=== PATIENT | female | born 1955 | race Caucasian/White ===

== ENCOUNTER 2019-08-30 11:03 | Outpatient (CLI) | payer BC, OTHER ==
--- NOTE | 2019-09-01 15:54 | XRAY Report ---
Reason: HX OF NONTRAMITIC CELLULITIS R. FOOT, 4TH DIGIT Procedure Date: 08/30/2019 Accession Number: [id number] / [id number] Procedure: XRS - Foot 3 View RT CPT Code: FULL RESULT: EXAM: RIGHT FOOT RADIOGRAPHY EXAM DATE: 08/30/2019 11:12 AM. CLINICAL HISTORY: History of nontraumatic cellulitis right foot, 4th digit. COMPARISON: None. TECHNIQUE: 3 views. FINDINGS: Bones: Normal. No fractures or bone lesions. Small plantar and dorsal calcaneal spurs. Joints: Degenerative joint disease in the first MTP joint and sesamoids. Mild midfoot degenerative joint disease. No erosions. Soft Tissues: Mild forefoot soft tissue swelling. IMPRESSION: 1. Mild degenerative joint disease. Mild soft tissue swelling. 2. No evidence of fracture or bony destruction. RADIA
== END 2019-08-30 11:04 | disposition home or self-care (01) ==
LOC: DI.S 11:03
PROVIDERS: ATTEND Family Medicine
DX: M19.071 Primary osteoarthritis, right ankle and foot (principal)

== ENCOUNTER 2020-02-20 18:20 | Outpatient (CLI) | payer OTHER | END 2020-02-20 18:21 | disposition home or self-care (01) | LOC: COV 18:20 | PROVIDERS: ATTEND Family Medicine | DX: R05 Cough (principal); R50.9 Fever, unspecified | CPT/HCPCS: 81599 ==

== ENCOUNTER 2020-06-04 13:26 | Outpatient (CLI) | payer OTHER ==
--- NOTE | 2020-06-04 13:51 | XRAY Report ---
PROCEDURE: Foot 3 View LT INDICATIONS: LEFT FOOT TECHNIQUE: 3 views of the foot were acquired. COMPARISON: None FINDINGS: Bones: No fractures or dislocations. No suspicious bony lesions. A plain film a foreign body in th is area is not seen. Incidental note is made of mild to moderate osteoarthritis at the first MTP join t and also plantar fascial and Achilles tendon insertion spurring at the posterior calcaneus. Soft tissues: No tibiotalar joint effusion. Achilles tendon appears normal. IMPRESSION: No fracture or foreign body seen. Achilles tendon and plantar fascia insertion spurring incidentally noted. Mild osteoarthritis at the first MTP joint. Reviewed by: Jean Pierre Oakes MD on 06/04/2020 1:49 PM PDT Approved by: Jean Pierre Oakes MD on 06/04/2020 1:49 PM PDT Station ID: [id number]
== END 2020-06-04 13:27 | disposition home or self-care (01) ==
LOC: DI.S 13:26
PROVIDERS: ATTEND Naturopath
DX: M19.072 Primary osteoarthritis, left ankle and foot (principal)

== ENCOUNTER 2020-09-03 14:17 | Observation (INO) | payer OTHER ==
[2020-09-03] MEDS ORDERED: NITROGLYCERIN SL 0.4 MG TABLET SL STA (14:55)
--- NOTE | 2020-09-03 14:58 | ED Physician Documentation ---
PD HPI CHEST PAIN - Stated complaint Stated Complaint: CP/ARM PAIN - Chief complaint Chief Complaint: Cardiac - History obtained from History obtained from: Patient - History of Present Illness Timing - onset: How many hours ago (24) Timing - duration: Hours (24) Timing - details: Abrupt onset, Constant Quality: Pressure, Throbbing Location: Left chest Radiation: Left upper extremity Improved by: Nothing Worsened by: Inspiration Associated symptoms: No: Shortness of air, Diaphoresis, Nausea, Vomiting, Feeling faint / dizzy Similar symptoms before: Has not had sx before - Additional information Additional information: 64-year-old female presents to the emergency department for evaluation of left upper chest pain that 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 She describes it as constant and throbbing. Worse when she lays on her left side or when she presses on the muscles of her left chest and worse with a deep breath. She denies any dyspnea or syncope. She does have a history of high blood pressure for which she takes losartan. She has had no vomiting diaphoresis cough or fevers. no hx of cancer, no hx of DVT. no unilateral leg swelling or recent immobilization She denies any history of coronary artery disease. She reports having a stress test completed about 10 years ago through [employer] that was unremarkable. She is not a smoker. Patient took 381 mg aspirins prior to arrival. Review of Systems Constitutional: denies: Fever, Chills Eyes: reports: Reviewed and negative Ears: reports: Reviewed and negative Nose: reports: Reviewed and negative Throat: reports: Reviewed and negative Cardiac: reports: Chest pain / pressure. denies: Palpitations, Pedal edema, Calf pain Respiratory: denies: Dyspnea, Cough, Wheezing GI: denies: Nausea : reports: Reviewed and negative Skin: reports: Reviewed and negative Musculoskeletal: reports: Reviewed and negative Neurologic: reports: Reviewed and negative PD PAST MEDICAL HISTORY - Allergies Allergies/Adverse Reactions: Allergies Allergy/AdvReac Type Severity Reaction Status Date / Time Sulfa (Sulfonamide Allergy Unknown Verified 09/03/20 14:40 Antibiotics) PD ED PE EXPANDED - General General: Alert, No acute distress - Neck Neck: Supple w/out meningeal sx, No tenderness. No: Soft tissue TTP, Bony TTP, Limited ROM - Cardiac Cardiac: Regular Rate, Regular Rhythm, Radial strong equal, Pedal strong equal, Cap refill < 2 sec - Respiratory Respiratory: Clear to ausultation mary. No: Distress, Labored - Abdomen Abdomen: Normal Bowel sounds. No: Tender to palpation - Extremities Extremities: Normal - Neuro Neuro: Alert and Oriented X 3. No: Confused, Disoriented - GCS Eye Opening: Spontaneous Motor: Obeys Commands Verbal: Oriented Total: 15 Results - Vitals Vitals: Vital Signs - 24 hr 09/03/20 09/03/20 09/03/20 14:25 15:28 15:38 Temperature 36.8 C Heart Rate 109 H 104 H 96 Respiratory 20 10 L 16 Rate Blood Pressure 215/117 H 171/98 H 145/91 H O2 Saturation 98 98 97 09/03/20 09/03/20 09/03/20 15:42 16:27 17:00 Temperature Heart Rate 109 H 78 82 Respiratory 11 L 16 16 Rate Blood Pressure 123/77 132/71 H 145/84 H O2 Saturation 93 97 99 09/03/20 17:25 Temperature Heart Rate 86 Respiratory 14 Rate Blood Pressure 141/86 H O2 Saturation 98 Oxygen O2 Source Room air - EKG (time done) 1434 Rate: Rate (enter#) (101), Tachy Rhythm: NSR [place]: Anterior hemiblock Intervals: Normal WV QRS: Normal Ischemia: Non specific changes (V5V6 flattening) Compare to prior EKG: Old EKG unavailable (Sinus tach with LAFB; non specific t wave changes V5V6) 1614 Rate: Rate (enter#) (63) Rhythm: NSR [place]: Anterior hemiblock Intervals: Normal WV QRS: Normal Ischemia: Normal ST segments Compare to prior EKG: Changed from prior EKG (HR slowed to NSR with LAFB) Computer interpretation: Agree with computer - Labs Labs: Laboratory Tests 09/03/20 09/03/20 09/03/20 15:00 15:00 15:00 WBC 11.1 H RBC 4.76 Hgb 13.6 Hct 41.1 MCV 86.3 MCH 28.6 MCHC 33.1 RDW 12.9 Plt Count 323 MPV 9.3 Neut # (Auto) 7.9 H Lymph # (Auto) 2.2 Republic # (Auto) 0.7 Eos # (Auto) 0.2 Baso # (Auto) 0.1 Absolute Nucleated RBC 0.00 Nucleated RBC % 0.0 Sodium 137 Potassium 3.9 Chloride 101 Carbon Dioxide 26 Anion Gap 10.0 BUN 16 Creatinine 0.6 Estimated GFR (MDRD) 101 Glucose 107 H Lactic Acid Calcium 9.7 Total Bilirubin 0.4 AST 20 ALT 27 Alkaline Phosphatase 92 Troponin I High Sens 5.2 Total Protein 8.3 H Albumin 4.8 Globulin 3.5 Albumin/Globulin Ratio 1.4 Lipase 27 09/03/20 09/03/20 09/03/20 16:11 16:11 16:11 WBC RBC Hgb 12.2 Hct 37.2 MCV MCH MCHC RDW Plt Count MPV Neut # (Auto) Lymph # (Auto) Republic # (Auto) Eos # (Auto) Baso # (Auto) Absolute Nucleated RBC Nucleated RBC % Sodium Potassium Chloride Carbon Dioxide Anion Gap BUN Creatinine Estimated GFR (MDRD) Glucose Lactic Acid 1.0 Calcium Total Bilirubin AST ALT Alkaline Phosphatase Troponin I High Sens 5.4 Total Protein Albumin Globulin Albumin/Globulin Ratio Lipase - Rads (name of study) CXR Radiology: Final report received (No acute cardiopulmonary process) CT pulmonary angio Radiology: Final report received (Multiple filling defects involving segmental and subsegmental pulmonary arteries in the right lung consistent with pulmonary embolism. Enlargement of the pulmonary arteries with slight leftward deviation of the interventricular septum suggestive of developing right heart strain. ) PD MEDICAL DECISION MAKING - ED course Complexity details: reviewed results, re-evaluated patient, considered differential, d/w patient ED course: 64-year-old female presents to the emergency department for evaluation of sudden onset non-exertional left-sided chest pain that began about 24 hours ago. work up included routine labs, troponin, cxr and ECG. 1608: I have been notified by nursing staff that patient has suddenly become bradycardic and hypotensive. (50's HR, BP 70's/ 50; Patient reports feeling nauseated, clammy and like she is about to have diarrhea) She has a CT angios of the chest pending. Repeat troponin H&H lactic acid is pending. 2 liters of crystalloid ordered 1730: CT scan of the pulmonary arteries shows multiple segmental and sub- segmental right-sided pulmonary embolus with some associated right heart strain. She does have a PESI score of 93. CT scan also suggest some anterior mediastinal lymphadenopathy worrisome for likely metastatic disease. I discussed these findings with admitting hospitalist Dr. Nunez. She is agreed to bring the patient in for further evaluation and treatment of the pulmonary embolus. She has initiated a heparin infusion. Findings were discussed at length with the patient and her partner at the bedside Departure - Departure Clinical Impression: Pulmonary embolus Qualifiers: Pulmonary embolism type: other Chronicity: acute Acute cor pulmonale presence: with acute cor pulmonale Qualified Code(s): I26.09 - Other pulmonary embolism with acute cor pulmonale
[2020-09-03 15:14] LABS: BASOPHILS # (AUTO) 0.1 10^3/uL (0.0-0.1); BASOPHILS % (AUTO) 0.5 %; EOSINOPHILS # (AUTO) 0.2 10^3/uL (0.0-0.7); EOSINOPHILS % (AUTO) 1.4 %; HGB - HEMOGLOBIN 13.6 g/dL (12.0-16.0); LYMPHOCYTES # (AUTO) 2.2 10^3/uL (1.5-3.5); LYMPHOCYTES % (AUTO) 20.2 %; MEAN CORPUSCULAR HEMOGLOBIN 28.6 pg (27.0-31.0); MEAN CORPUSCULAR HGB CONC 33.1 g/dL (32.0-36.0); MEAN CORPUSCULAR VOLUME 86.3 fL (81.0-99.0); MEAN PLATELET VOLUME 9.3 fL (7.9-10.8); MONOCYTES # (AUTO) 0.7 10^3/uL (0.0-1.0); MONOCYTES % (AUTO) 6.1 %; NEUTROPHILS # (AUTO) 7.9 10^3/uL (1.5-6.6); NEUTROPHILS % (AUTO) 71.3 %; PLT - PLATELET COUNT 323 10^3/uL (130-450); RED BLOOD COUNT 4.76 10^6/uL (4.20-5.40); RED CELL DISTRIBUTION WIDTH 12.9 % (12.0-15.0); WHITE BLOOD COUNT 11.1 x10^3/uL (4.8-10.8)
--- NOTE | 2020-09-03 15:18 | XRAY Report ---
PROCEDURE: Chest 1 View X-Ray INDICATIONS: Chest Pain TECHNIQUE: One view of the chest was acquired. COMPARISON: None FINDINGS: Surgical changes and devices: None. Lungs and pleura: No pleural effusions or pneumothorax. Lungs are clear. Mediastinum: Mediastinal contours appear normal. Heart size is normal. Bones and chest wall: No suspicious bony lesions. Overlying soft tissues appear unremarkable. IMPRESSION: No evidence acute pulmonary process. Reviewed by: Vinod Reaves MD on 09/03/2020 3:17 PM PDT Approved by: Vinod Reaves MD on 09/03/2020 3:17 PM PDT Station ID: [id number]
[2020-09-03 15:29] LABS: ALBUMIN 4.8 g/dL (3.2-5.5); ALBUMIN/GLOBULIN RATIO 1.4 (1.0-2.2); BILIRUBIN,TOTAL 0.4 mg/dL (0.2-1.0); CALCIUM 9.7 mg/dL (8.5-10.3); CREATININE 0.6 mg/dL (0.4-1.0); TOTAL PROTEIN 8.3 g/dL (6.7-8.2)
[2020-09-03] MEDS ORDERED: SODIUM CHLORIDE 0.9% 1,000 ML IV STA ×2 (16:07)
[2020-09-03] MEDS ORDERED: IOVERSOL 320 100 ML VIAL IVP ONE (16:12)
[2020-09-03 16:17] LABS: HGB - HEMOGLOBIN 12.2 g/dL (12.0-16.0)
--- NOTE | 2020-09-03 17:24 | CT Report ---
PROCEDURE: ANGIO CHEST W/WO INDICATIONS: pleuritic chest pain; r/o PE CONTRAST: IV CONTRAST: Optiray 320 ml: 80 PO CONTRAST: *NO PO CONTRAST TECHNIQUE: After the administration of intravenous contrast, 2 mm thick sections acquired from the pulmonary api kaylee to the posterior costophrenic angles. 3-dimensional maximum intensity projection (MIP) coronal a nd sagittal reformats were then acquired through the thorax. For radiation dose reduction, the follow ing was used: automated exposure control, adjustment of mA and/or kV according to patient size. COMPARISON: Chest xray 09/03/20. FINDINGS: Image quality: Excellent. Pulmonary arteries: Pulmonary arteries demonstrate nonocclusive segmental and subsegmental filling d efects within the right upper, middle, and lower lobes consistent with pulmonary embolism. There is e nlargement of the pulmonary arteries, with the main pulmonary artery measuring up to 3.1 cm. There is minimal leftward deviation of the interventricular septum suggestive of developing right heart strai n. Lungs and pleura: Mild subpleural scarring and atelectasis are demonstrated within the lung bases. M ild bilateral bronchiectasis is also demonstrated with a basilar predominance. There is a calcified n odule in the right lower lobe consistent with sequelae of old granulomatous disease. No pleural effus ions or pneumothorax. Central and peripheral airways are patent. Mediastinum: Heart size is normal, without pericardial effusion. Thoracic aorta is normal in calibe r and enhancement. There are calcified right hilar lymph nodes consistent with sequelae of old granul omatous disease. The large confluent left anterior mediastinal prevascular lymph nodes are demonstrat ed. Esophagus is normal in caliber, without hiatal hernia. Bones and chest wall: No suspicious bony lesions. Ribs and thoracic spine appear intact throughout. No axillary or supraclavicular adenopathy. There is a small nonspecific left thyroid nodule measuri ng up to 0.7 cm. Abdomen: Visualized upper abdomen demonstrates surgical absence of the gallbladder. IMPRESSION: 1. Multiple filling defects involving segmental and subsegmental pulmonary arteries in the right lung consistent with pulmonary embolism. 2. Enlargement of the pulmonary arteries with slight leftward deviation of the interventricular septu m suggestive of developing right heart strain. 3. Confluent enlarged anterior mediastinal lymph nodes. Findings are nonspecific but suspicious for m etastatic disease. Recommend correlation clinically and follow-up evaluation of the abdomen and pelvi s when clinically feasible. Findings discussed with Monie Sorenson NP on 09/03/2020 at 5:20 PM. Reviewed by: Vinny Mooney MD on 09/03/2020 5:23 PM PDT Approved by: Vinny Mooney MD on 09/03/2020 5:23 PM PDT Station ID: [id number]
[2020-09-03] MEDS: IOVERSOL 320 100 ML VIAL IVP ONE (17:30)
[2020-09-03] MEDS ORDERED: SODIUM CHLORIDE FLUSH 0.9% 10 ML SYRINGE IVP PRN (17:32)
[2020-09-03] MEDS ORDERED: ONDANSETRON ODT 4 MG TABLET TL PRN (17:32)
[2020-09-03] MEDS ORDERED: ONDANSETRON 4 MG/2 ML VIAL IVP PRN (17:32)
[2020-09-03] MEDS ORDERED: oxyCODONE 5 MG TABLET PO PRN (17:32)
--- NOTE | 2020-09-03 17:58 | HISTORY & PHYSICAL EXAMINATION ---
Chief Complaint - Chief Complaint Chief Complaint: pleuritic chest pain History of Present Illness - Admitted From Admitted From:: Home/ER - History Obtained From Records Reviewed: Meditech History obtained from: Patient and meditech Exam Limitations: none - History of Present Illness HPI Comment/Other: This is a lady who regards her self is relatively healthy. Exercises. 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 It is nonradiating. It does not matter whether she is at rest or with exertion. It is constant, and keeps pace with her pulse and throbs. It is pleuritic, made worse by laying on the left side where her chest wall is pressed, or by using her arm too much. She has had no recent travel. She denies a sedentary lifestyle. She exercises by swimming in [facility]. She loves the cold water. The ability to move. She has a bad right knee so she does not like doing cardiovascular exercise there is weightbearing. She has had no unexplained weight changes, fevers, sweats, or change in appetite. She is not short of breath with this, denies neck pain. There is no diaphoresis. She has lived all over the world. She has is from [facility] but has lived in various parts in the [facility], [place], [place], but has been in [facility] for 24 years. She is lived in [place]. The only time she is ever recall being ill was around the time of her daughter's . She had pleuritic chest pain, and it resolved after a few weeks. Her daughter was raising ducklings. So for a while, she visits her daughter every week, she was sleeping in the same room or near the room with the ducklings were sleeping. She has not traveled to [facility]. Her father of a stroke but had blood clots before his . And 1 of her 4 siblings, her oldest brother, has blood clots. Fearing that she was having a cardiac event she took an aspirin and drove to the emergency room. She was evaluated by nurse practitioner Vika Sorenson. Initial blood pressure was quite high at 215/117. Pulse 109. Temperature 36.8. 98% on room air. As her visit progressed her blood pressures come down. By the time the nurse practitioner called me her blood pressure was now down to 105/84. Still saturating well 99% on room air. Her blood work was negative. Troponin negative. Lactic acid negative. Chest x-ray negative. She did become bradycardic and hypotensive for very short brief period of time. This was after she had a CT angiogram of the chest done. She has enlargement of the pulmonary arteries with a slight leftward deviation of the IV septum. Multiple filling defects involving the segmental and subsegmental pulmonary arteries in the right lung. Also of note is old granulomatous lung disease on the CAT scan. Some small lymph nodes with that disease. However she has left-sided mediastinal lymph nodes that are quite large. Differential diagnosis includes metastatic disease. Patient is now admitted to the hospital for IV heparin, transition to anticoagulation. And work-up for possible neoplasm. 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 Prior to his had blood clots. Mom is still alive and has diabetes but healthy. 4 siblings. One has diabetes, one has blood clots. 1 child who is healthy. Living arrangement: At home Living Situation: Alone Social History Notes: She was born in [facility] and is traveled all over. Lived in [place] for a few years, [place], but has been in the [facility] and living on [facility] for 24 years. She is . is in the [place] area and still good friends with him. She has a daughter who lives in [place] and a daughter who lives in [place]. 1 of the daughters is adopted. She never smoked. She rarely drinks alcohol and has not drank in a few months because of K[place]. She says is just not any fun drinking alone. 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 So many of her patients are very unhappy, and she is having to commercial counsel them through their crise s right now. Both of her daughter share equally and being power of employment law attorney for her. - Substance History Use: Uses substance without health or social issues: NONE Abuse: Recurrent use of substance despite neg consequences: NONE Dependence: Experiences withdrawal or developed tolerances: NONE - POLST Patient has POLST: No POLST Status: Full Code Meds/Allgy - Allergies Allergies/Adverse Reactions: Allergies Allergy/AdvReac Type Severity Reaction Status Date / Time Sulfa (Sulfonamide Allergy Unknown Verified 09/03/20 14:40 Antibiotics) Review of Systems - Constitutional Constitutional: denies: Fatigue, Fever, Chills, Malaise, Poor appetite, Diaphoresis - Eyes Eyes: denies: Pain, Amaurosis, Vision loss - Ears, Nose & Throat Ears, Nose & Throat: denies: Hearing loss, Hearing aids, Nasal obstruction, Nasal congestion, Postnasal drainage, Sore throat - Cardiovascular Cariovascular: reports: Chest pain. denies: Irregular heart rate, Palpitations, Edema, Lightheadedness, Syncope, Exertional dyspnea, Decr. exercise tolerance - Respiratory Respiratory: denies: Cough, Sputum production, Wheezing, Orthopnea, SOB at rest, SOB with exertion - Gastrointestinal Gastrointestinal: denies: Abdominal pain, Constipation, Diarrhea, Change in bowel habits - Genitourinary Genitourinary: denies: Dysuria, Frequency, Urgency, Hematuria, Incontinence - Musculoskeletal Musculoskeletal: reports: Muscle pain (The left leg has hurt for years. She has had various physical therapy, and no one's been able to explain why her left leg (especially in the medial thigh) hurts.), Joint pain (In the right knee. Diagnosed with osteoarthritis. Limited motion at times because of pain.). denies: Back pain, Muscle aches, Stiffness - Integumentary Integumentary: denies: Rash, Pruritis, Lesions - Neurological Neurological: denies: General weakness, Focal weakness, Headache, Dizziness, Memory problems, Pre-existing deficit - Psychiatric Psychiatric: denies: Depression, Anxiety, Suicidal, Hallucinations - Endocrine Endocrine: denies: Polyuria, Polydypsia, Polyphagia - Hematologic/Lymphatic Hematologic/Lymphatic: denies: Anemia, Bruising Prior Level of Functionality: Completely independent with activities of daily living. 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 Drives a car. Is able to do her own housework. Pays her own bills. Exam - Vital Signs Reviewed Vital Signs: Yes Vital Signs: Vital Signs x48h Temp Pulse Resp BP Pulse Ox 09/03/20 17:25 86 14 141/86 H 98 09/03/20 17:00 82 16 145/84 H 99 09/03/20 16:27 78 16 132/71 H 97 09/03/20 15:42 109 H 11 L 123/77 93 09/03/20 15:38 96 16 145/91 H 97 09/03/20 15:28 104 H 10 L 171/98 H 98 09/03/20 14:25 36.8 C 109 H 20 215/117 H 98 - Physical Exam General Appearance: positive: No acute distress, Alert, Other (Moderately overweight, anxious, slightly tearful female. This is very, very scary for her. Understandably so. Emotional support being provided by 1 of her best friends who accompanies her. They are both making sure that they are on the phone to answer the anxious questions from anxious daughters.) Eyes Bilateral: positive: PERRL ENT: positive: Pharynx nml Neck: positive: No JVD. negative: Stiff neck Respiratory: positive: Chest non-tender, No respiratory distress, Other (However reproducible left-sided pleuritic chest wall pain is very evident.). negative: Wheezes, Rales, Rhonchi Cardiovascular: positive: Regular rate & rhythm. negative: Systolic murmur, Gallop/S4, Friction rub Peripheral Pulses: positive: 1+ Abdomen: positive: Non-tender, No organomegaly, Nml bowel sounds, No distention, Other (Large abdominal pannus that makes it difficult to do some exam findings for organomegaly) Skin: positive: Warm, Dry Extremities: positive: Non-tender, No pedal edema, Other (Right Knee cap Boggy , no warmth or effusion though) Neurologic/Psychiatric: positive: Oriented x3, CN's nml (2-12), Motor nml, Sensation nml Conclusion/Plan - Problem List (1) Pulmonary embolism Conclusion/Plan: She appears to be developing right heart strain. Shortness of breath. There is no provoking factors. She is not on hormone replacement therapy, she has never had blood clots before with a hypercoagulable disorder, she has not had any prolonged sitting position in a plane or car. However, there is a family history in her father and brother. It is associated, on CAT scan, with possible lymphadenopathy. Indicating possible neoplasm.Which in and of itself would be a risk factor.Her family history is also interesting, indicating possible hypercoagulable disorder. Plan: Observation status Heparin drip with heparin protocol Transition to DOAC in the morning Qualifiers: Pulmonary embolism type: other Chronicity: acute Acute cor pulmonale presence: with acute cor pulmonale Qualified Code(s): I26.09 - Other pulmonary embolism with acute cor pulmonale (2) Mediastinal lymphadenopathy Conclusion/Plan: CT of chest already done for the pulmonary arteries. She does not recall having any granulomatous lung disease in the past. [place] the possibility of fungal lung disease is present. She has been in her room, once a week, for several months with baby ducks. Could she have a mycobacterial infection. Noninfectious causes would be drugs such as methotrexate oretanercept. She is not on those. She is not an IV drug abuser. She does not describe hypersensitivity pneumonitis. No pneumoconiosis. She does not have eosinophilia on CBC. Sarcoidosis is a possibility. Lymphoma can present as granulomatous lung disease or lymphomatoid granulomatosis. Will do CT of abdomen and pelvis in the morning.Unfortunately, she has now been started on anticoagulation. I explained to her that the most urgent treatment at this time is her pulmonary emboli. She will need to see infectious disease and pulmonology and possibly oncology to then start getting the work-up for this mediastinal lymphadenopathy and granulomatous lung disease. That may require going off of anticoagulation for a day for things such as biopsies. (3) Hypertension Conclusion/Plan: On losartan. She usually takes it in the morning. She did take it this morning. High level of anxiety. She says that when they told her the findings on the CT scan her blood pressure went through the roof. She could feel her heart pounding with her fear. Plan: Continue to monitor while here Extra dose of losartan tonight Ativan as needed. . Qualifiers: Hypertension type: essential hypertension Qualified Code(s): I10 - Essentia l (primary) hypertension - Lab Results Lab results reviewed: Yes Fish Bones: 09/03/20 16:11 09/03/20 15:00 - Diagnostic Imaging Results Diagnostic Imaging Results: positive: Final report reviewed Core Measures - Anticipated LOS I expect patient to be DC'd or transferred within 96 hours.: Yes - DVT/VTE - Prophylaxis VTE/DVT Device ordered at admit?: Yes
[2020-09-03] MEDS ORDERED: HEPARIN 25000UNITS/500ML (D5W) 25,000 UNIT/500 ML BAG IV SCH (18:00)
[2020-09-03] MEDS ORDERED: LORazepam 2 MG/ML VIAL IVP PRN (18:54)
[2020-09-03] MEDS: LOSARTAN 50 MG TABLET PO SCH (19:47)
[2020-09-03] MEDS: ACETAMINOPHEN 325 MG TABLET PO PRN (21:29)
[2020-09-04] MEDS ORDERED: SODIUM CHLORIDE FLUSH 0.9% 10 ML SYRINGE IVP SCH (01:00)
[2020-09-04] MEDS: ACETAMINOPHEN 325 MG TABLET PO PRN ×2 (01:02→01:48)
--- NOTE | 2020-09-04 08:10 | Ultrasound Report ---
PROCEDURE: Duplex Ext Veins Bilateral INDICATIONS: Pulmonary emboli, bilateral leg pain. TECHNIQUE: Real-time imaging, as well as color and pulse Doppler interrogation, were performed of the deep veins of both legs from the inguinal ligament to the popliteal fossa. COMPARISON: None FINDINGS: There is chronic-appearing eccentric thrombus within the left popliteal vein. And there is superimposed acute echogenic thrombus within the left popliteal vein as well the peroneal vein, and possible focal thrombus within the posterior tibial vein. This is nonocclusive. There is no evidence of acute thrombus. The bilateral lower extremity deep veins are otherwise normally compressible in fr ee of intraluminal thrombus. Color and pulse Doppler demonstrate normal phasic intravascular flow. There is normal augmentation response to distal compression maneuver. IMPRESSION: Acute on chronic left popliteal vein thrombus with focal thrombus in the peroneal vein and possibly w ithin the posterior tibial vein on the left as well. These are nonocclusive. No significant change fr om the preliminary report. Reviewed by: Alden Bah MD on 09/04/2020 8:08 AM PDT Approved by: Alden Bah MD on 09/04/2020 8:08 AM PDT Station ID: [id number]
[2020-09-04] MEDS ORDERED: IOVERSOL 320 50 ML VIAL ONE (08:11)
[2020-09-04] MEDS ORDERED: IOVERSOL 320 100 ML VIAL IVP ONE (08:11)
[2020-09-04] MEDS: LOSARTAN 50 MG TABLET PO SCH (08:27)
[2020-09-04 09:00] LABS: HGB - HEMOGLOBIN 13.3 g/dL (12.0-16.0); MEAN CORPUSCULAR HEMOGLOBIN 27.8 pg (27.0-31.0); MEAN CORPUSCULAR HGB CONC 32.1 g/dL (32.0-36.0); MEAN CORPUSCULAR VOLUME 86.4 fL (81.0-99.0); MEAN PLATELET VOLUME 9.3 fL (7.9-10.8); RED BLOOD COUNT 4.79 10^6/uL (4.20-5.40); RED CELL DISTRIBUTION WIDTH 13.1 % (12.0-15.0); WHITE BLOOD COUNT 9.7 x10^3/uL (4.8-10.8)
[2020-09-04] MEDS ORDERED: APIXABAN 5 MG TABLET PO SCH (09:00)
[2020-09-04] MEDS: IOVERSOL 320 100 ML VIAL IVP ONE (09:40)
--- NOTE | 2020-09-04 10:45 | CT Report ---
PROCEDURE: Abdomen/Pelvis W INDICATIONS: mediastinal nodes, large CONTRAST: IV CONTRAST: Optiray 320 ml: 100 PO CONTRAST: Optiray 320 ml50 TECHNIQUE: After the administration of IV and oral contrast, 5 mm thick sections acquired from the diaphragms to the symphysis. 5 mm thick coronal and sagittal reformats were acquired. For radiation dose reducti on, the following was used: automated exposure control, adjustment of mA and/or kV according to estelita ent size. COMPARISON: Chest CT dated 09.03.20 FINDINGS: Image quality: Excellent. ABDOMEN: Lung bases: Lung bases are clear. Heart size is normal. Solid organs: Liver and spleen are normal in size and enhancement. Gallbladder is surgically absent Biliary system is non dilated. Pancreas enhances normally. No adrenal nodules. Kidneys demonstra te normal size and enhancement, without hydronephrosis. Peritoneum and bowel: Bowel loops demonstrate normal wall thickness and caliber. No free fluid or a ir. Normal appendix. Nodes and vessels: No retroperitoneal or mesenteric adenopathy by size criteria. Aorta and inferior vena cava are normal in size. Miscellaneous: No ventral hernias. PELVIS: Genitourinary: Bladder wall thickness is normal. Miscellaneous: No inguinal hernias or adenopathy. Bones: No suspicious bony lesions. No vertebral body compression fractures. IMPRESSION: 1. No evidence of adenopathy nor neoplasm within the abdomen, nor pelvis. 2. Normal appendix. Reviewed by: Reece Canada MD on 09/04/2020 10:43 AM PDT Approved by: Reece Canada MD on 09/04/2020 10:43 AM PDT Station ID: [id number]
[2020-09-04 11:20] VITALS: BP 142/91
--- NOTE | 2020-09-04 12:08 | Discharge Plan ---
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 It was changed by respiration, laying on your left side. 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 You are not on control pills or hormones. You do not smoke. In the emergency room we found you to have pulmonary emboli which are clots to the lungs. The source of the clots may be your left leg where an ultrasound shows you to have small clots in the veins below your knee. The CT scan done in the emergency room not only showed blood clots but "granulomatous lung disease" and enlarged lymph glands underneath the area called the mediastinum. That is underneath your breastbone. We did a follow-up CT scan of your abdomen to look for malignancy and that was completely normal. Plan of Treatment: 1. You have been transitioned from intravenous blood thinners to oral/pill blood thinners. That is Eliquis 10 mg twice a day. You will do that until the evening of September 10. Then you will switch to Eliquis 5 mg twice a day for a minimum of the next 3 months. Your primary care provider or specialty referral provider may opt to continue the Eliquis for up to 6 months. 2. To help reduce your risk of recurrence of blood thinners, make sure you stay mildly to moderately physically active every day. It is a simple thing of just taking a walk every day, and not sitting down so much. You can walk back and forth on your heels and toes if you have been sitting for a while, then stand to exercise your legs. Use below the knee compression stockings, low compression. 3. Blood thinners will not only help blood clots to not form, they also will increase risk of bleeding. So make sure you always hold onto railings, use a walking stick, and avoid the risk of falls. 4. While on blood thinners, do not drink more than 1 drink a day of alcohol. You cannot take medication such as aspirin, ibuprofen, Naprosyn. If you have low-grade aches and pains you can take Tylenol. 5. Focus on caloric intake. Reduce the number of calories going in this is that the number of calories out is higher with exercise and diet. This will also reduce your risk of further risk of DVT. 6. Please see your primary care provider in follow-up. Your primary care provider will need to refer you for specialty evaluation of the lymph nodes we are seeing underneath your breastbone. At this time we do not know what the cause of that is. We call it a differential diagnosis. That can consist of infection versus sarcoidosis versus malignancy. Care Goals: To be able to come off blood thinners in the next few months. Completely reduce your risk as much as possible for recurrence of disease. And to find out what the abnormalities are that are seen on CT scan of the chest. To lose weight. Assessment: Patient, and her best friend, have written all of this down. They promised to follow through. No Smoking: If you smoke, Please STOP! Call for help. Follow-up with: Leigh Perdue MD [Primary Care Provider] -
--- NOTE | 2020-09-04 12:19 | DISCHARGE SUMMARY ---
"Discharge Summary Admit Date: 09/03/20 Discharge Date: 09/04/20 Discharging Provider: Shannan Nunez MD Primary Care Provider: Leigh Perdue MD Code Status: Attempt Resuscitation Condition at Discharge: Fair Discharge Disposition: 01 Home, Self Care - DIAGNOSES Discharge Diagnoses with Status of Each Condition: 1. Pulmonary embolism with right heart strain 2. Mediastinal lymphadenopathy 3. Granulomatous lung disease 4. Hypertension 5. Anxiety about health 6. Morbid obesity - HPI History of Present Illness: This is a lady who regards her self is relatively healthy. Exercises. 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 It is nonradiating. It does not matter whether she is at rest or with exertion. It is constant, and keeps pace with her pulse and throbs. It is pleuritic, made worse by laying on the left side where her chest wall is pressed, or by using her arm too much. She has had no recent travel. She denies a sedentary lifestyle. She exercises by swimming in [facility]. She loves the cold water. The ability to move. She has a bad right knee so she does not like doing cardiovascular exercise there is weightbearing. She has had no unexplained weight changes, fevers, sweats, or change in appetite. She is not short of breath with this, denies neck pain. There is no diaphoresis. She has lived all over the world. She has is from [facility] but has lived in various parts in the [facility], [place], [place], but has been in [facility] for 24 years. She is lived in [place]. The only time she is ever recall being ill was around the time of her daughter's . She had pleuritic chest pain, and it resolved after a few weeks. Her daughter was raising ducklings. So for a while, she visits her daughter every week, she was sleeping in the same room or near the room with the ducklings were sleeping. She has not traveled to [facility]. Her father of a stroke but had blood clots before his . And 1 of her 4 siblings, her oldest brother, has blood clots. Fearing that she was having a cardiac event she took an aspirin and drove to the emergency room. She was evaluated by nurse practitioner Vika Sorenson. Initial blood pressure was quite high at 215/117. Pulse 109. Temperature 36.8. 98% on room air. As her visit progressed her blood pressures come down. By the time the nurse practitioner called me her blood pressure was now down to 105/84. Still saturating well 99% on room air. Her blood work was negative. Troponin negative. Lactic acid negative. Chest x-ray negative. She did become bradycardic and hypotensive for very short brief period of time. This was after she had a CT angiogram of the chest done. She has enlargement of the pulmonary arteries with a slight leftward deviation of the IV septum. Multiple filling defects involving the segmental and subsegmental pulmonary arteries in the right lung. Also of note is old granulomatous lung disease on the CAT scan. Some small lymph nodes with that disease. However she has left-sided mediastinal lymph nodes that are quite large. Differential diagnosis includes metastatic disease. Patient is now admitted to the hospital for IV heparin, transition to anticoagulation. And work-up for possible neoplasm. 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 Chest x-ray without evidence of acute cardiopulmonary process 2. Chest/thorax CT angiogram with multiple filling defects involving segmental and subsegmental pulmonary arteries in the right lung consistent with pulmonary embolism. Enlargement of the pulmonary arteries with slight leftward deviation of the interventricular septum suggestive of developing right heart strain. [place] enlarged anterior mediastinal lymph nodes. Nonspecific but suspicious for metastatic disease. Recommend clinical correlation. 3. Duplex extremity veins bilateral. Acute on chronic left popliteal vein thrombus with focal thrombus in the peroneal vein and possibly within the posterior tibial vein on the left as well. They are nonocclusive. 4. Abdomen/pelvis CT with no evidence of adenopathy or neoplasm within the abdomen or pelvis. Normal appendix. - HOSPITAL COURSE Hospital Course: The patient was placed on IV heparin. The next day she was transitioned to Eliquis. Work-up included Dopplers which showed minimal DVT below the knee on the left. It is interesting that she consistently has left-sided chest pain even of the pulmonary embolism are on the right. We did a CT of the abdomen looking for neoplasm that was suggested on the mediastinal findings of the CT of the chest. None was found. During her stay, we noted that she has severe anxiety, justifiably so, when bad news is being presented. That would then cause her systolic blood pressure to go over 200 systolic. We did not adjust her medication because at discharge blood pressure was normal. She required a little bit of Ativan while she was here. I have asked her to follow-up with her primary care provider to see if she needs her medications adjusted. The patient is instructed to continue taking Eliquis 10 mg twice daily until September 10. She can then start Eliquis 5 mg twice daily on September 11. Warned not to take nonsteroidals. Can take Tylenol for pain. See her primary care provider for follow-up and may need referral for work-up of the mediastinal adenopathy.She may need to see oncology as well as pulmonology. At this time differential diagnosis includes infection versus sarcoidosis versus neoplasm. She was given exercises to do to improve mobility of her leg muscles. She was asked to wear compression stockings. Asked to doubt do her classes standing as opposed to sitting. She was also asked to consider negative caloric status to help her lose weight. She was 5 foot 7 inches tall and weighing 108.86 kg. Temperature is 37.1. Pulse is 88. Blood pressure 142/91. Respirations 20. 94 to 96% on room air. Cooperative white female looks slightly older than stated age. Perfectly oval tanned face markings where some of her forehead was pale. Normal speech. Normal vision. Neck was supple without adenopathy. No supraclavicular adenopathy. Lungs were clear to auscultation and percussion. There was no rub. She had no tachypnea or hypoxia. PMI was normally placed. I did not feel an RV lift. Regular rate and rhythm. Benign abdomen other than a large, obese abdominal pannus. Legs had muscular calves. No clubbing cyanosis or edema. Homans negative even on that left leg that exhibited DVT. - ALLERGIES Allergies/Adverse Reactions: Allergies Allergy/AdvReac Type Severity Reaction Status Date / Time Sulfa (Sulfonamide Allergy Unknown Verified 09/03/20 14:40 Antibiotics) - MEDICATIONS Home Medications: Ambulatory Orders Medication Instructions Recorded Confirmed Apixaban [Eliquis] 5 mg PO BID #60 tablet 09/04/20 Apixaban [Eliquis] 10 mg PO BID #13 tablet 09/04/20 Losartan Potassium 50 mg PO DAILY 09/04/20 - LABS Result Diagrams: 09/04/20 08:51 09/03/20 15:00"
[2020-09-11] MEDS ORDERED: APIXABAN 5 MG TABLET PO SCH (09:00)
== END 2020-09-04 13:15 | disposition home or self-care (01) ==
LOC: ED 14:17 → MS2 17:32
PROVIDERS: ADMIT Specialist; ATTEND Specialist
DX: I26.09 Other pulmonary embolism with acute cor pulmonale (principal); I11.9 Hypertensive heart disease without heart failure; J84.10 Pulmonary fibrosis, unspecified; R59.0 Localized enlarged lymph nodes; F41.9 Anxiety disorder, unspecified; E66.01 Morbid (severe) obesity due to excess calories; Z68.37 Body mass index [BMI] 37.0-37.9, adult; M17.11 Unilateral primary osteoarthritis, right knee; I82.432 Acute embolism and thrombosis of left popliteal vein; I82.452 Acute embolism and thrombosis of left peroneal vein; Z82.49 Family history of ischemic heart disease and other diseases of the circulatory system; Z82.3 Family history of stroke
CPT/HCPCS: 36415; 71045; 71275; 74177; 80053; 82272; 82274; 83605; 83690; 84484; 85014; 85018; 85025; 85027; 85520; 93005; 93970; 96365; 96366; 99284; 99285; A9270; G0378; Q9967; 82270

== ENCOUNTER 2020-09-09 11:11 | Outpatient (CLI) | payer OTHER ==
[2020-09-09 15:28] LABS: BASOPHILS % (AUTO) 0.5 %; EOSINOPHILS # (AUTO) 0.1 10^3/uL (0.0-0.7); EOSINOPHILS % (AUTO) 1.5 %; LYMPHOCYTES # (AUTO) 2.2 10^3/uL (1.5-3.5); MEAN CORPUSCULAR HEMOGLOBIN 27.6 pg (27.0-31.0); MEAN CORPUSCULAR VOLUME 86.2 fL (81.0-99.0); MONOCYTES # (AUTO) 0.5 10^3/uL (0.0-1.0); NEUTROPHILS % (AUTO) 63.6 %; PLT - PLATELET COUNT 372 10^3/uL (130-450); RED BLOOD COUNT 4.71 10^6/uL (4.20-5.40); RED CELL DISTRIBUTION WIDTH 12.7 % (12.0-15.0); WHITE BLOOD COUNT 7.8 x10^3/uL (4.8-10.8)
[2020-09-09 15:35] LABS: BILIRUBIN,URINE NEGATIVE (NEGATIVE); GLUCOSE, URINE (UA) NEGATIVE (NEGATIVE); KETONES,URINE (UA) NEGATIVE (NEGATIVE); LEUKOCYTE ESTERASE, URINE MODERATE (NEGATIVE); NITRITE,URINE NEGATIVE (NEGATIVE); OCCULT BLOOD,URINE NEGATIVE (NEGATIVE); PH,URINE 7.5 PH (5.0-7.5); PROTEIN,URINE NEGATIVE (NEGATIVE); UROBILINOGEN,URINE 0.2 (NORMAL) E.U./dL (NORMAL)
[2020-09-09 15:42] LABS: CLARITY,URINE CLEAR (CLEAR); RBC,URINE None Seen /HPF (0-5)
[2020-09-09 15:43] LABS: BACTERIA,URINE None Seen /HPF (None Seen); SQUAMOUS EPITHELIAL CELL,UR MOD Squamous (<= Few)
[2020-09-09 15:52] LABS: ALBUMIN 4.4 g/dL (3.2-5.5); ALBUMIN/GLOBULIN RATIO 1.2 (1.0-2.2); BILIRUBIN,TOTAL 0.5 mg/dL (0.2-1.0); CALCIUM 9.3 mg/dL (8.5-10.3); CREATININE 0.6 mg/dL (0.4-1.0); CRP HIGH SENSITIVITY 9.2 mg/L
[2020-09-09 16:11] LABS: THYROID STIMULATING HORMONE 1.58 uIU/mL (0.34-5.60)
[2020-09-09 16:13] LABS: FREE T4 (FREE THYROXINE) 0.98 ng/dL (0.58-1.64)
[2020-09-09 16:14] LABS: FREE T3 3.36 pg/mL (2.5-3.9)
[2020-09-09 16:18] LABS: TOTAL T3 1.22 ng/mL (0.87-1.78)
[2020-09-09 16:19] LABS: FERRITIN 91.3 ng/mL (11.0-306.8)
[2020-09-09 20:14] LABS: HEMOGLOBIN A1c% 5.5 % (4.27-6.07)
[2020-09-10 10:46] LABS: HOMOCYSTEINE 9.8 umol/L (<10.4)
== END 2020-09-09 11:12 | disposition home or self-care (01) ==
LOC: LAB.S 11:11
PROVIDERS: ATTEND Family Medicine
DX: I10 Essential (primary) hypertension (principal); R53.83 Other fatigue; E55.9 Vitamin D deficiency, unspecified; E03.9 Hypothyroidism, unspecified; E78.5 Hyperlipidemia, unspecified
CPT/HCPCS: 36415; 80053; 81001; 82306; 82626; 82728; 83036; 83090; 84439; 84443; 84480; 84481; 85025; 86141

== ENCOUNTER 2021-03-30 09:53 | Outpatient (CLI) | payer OTHER | END 2021-03-30 09:54 | disposition home or self-care (01) | LOC: LAB.S 09:53 | PROVIDERS: ATTEND Internal Medicine Pulmonary Disease | DX: I26.09 Other pulmonary embolism with acute cor pulmonale (principal) | CPT/HCPCS: 81240; 81241; 81599; 86147 ==

== ENCOUNTER 2021-09-25 07:49 | Outpatient (CLI) | payer OTHER ==
[2021-09-25 15:38] LABS: BASOPHILS % (AUTO) 0.4 %; EOSINOPHILS # (AUTO) 0.1 10^3/uL (0.0-0.7); HCT - HEMATOCRIT 39.9 % (37.0-47.0); HGB - HEMOGLOBIN 12.7 g/dL (12.0-16.0); LYMPHOCYTES % (AUTO) 28.4 %; MEAN CORPUSCULAR HEMOGLOBIN 27.4 pg (27.0-31.0); MEAN CORPUSCULAR HGB CONC 31.8 g/dL (32.0-36.0); MEAN CORPUSCULAR VOLUME 86.2 fL (81.0-99.0); MEAN PLATELET VOLUME 9.9 fL (7.9-10.8); MONOCYTES # (AUTO) 0.6 10^3/uL (0.0-1.0); MONOCYTES % (AUTO) 7.9 %; NEUTROPHILS # (AUTO) 4.3 10^3/uL (1.5-6.6); NEUTROPHILS % (AUTO) 60.9 %; PLT - PLATELET COUNT 327 10^3/uL (130-450); RED BLOOD COUNT 4.63 10^6/uL (4.20-5.40); RED CELL DISTRIBUTION WIDTH 13.4 % (12.0-15.0); WHITE BLOOD COUNT 7.1 x10^3/uL (4.8-10.8)
[2021-09-25 16:02] LABS: ALBUMIN/GLOBULIN RATIO 1.2 (1.0-2.2); ALKALINE PHOSPHATASE 87 IU/L (42-121); ALT ALANINE AMINOTRANSFERASE 29 IU/L (10-60); AST ASPARTATE AMINOTRANSFERASE 22 IU/L (10-42); BILIRUBIN,TOTAL 0.5 mg/dL (0.2-1.0); BUN - BLOOD UREA NITROGEN 12 mg/dL (6-20); CALCIUM 8.9 mg/dL (8.5-10.3); CARBON DIOXIDE - CO2 25 mmol/L (21-32); CHLORIDE 102 mmol/L (101-111); CHOL/HDL RATIO 4.1 (<4.4); CHOLESTEROL 203 mg/dL; CREATININE 0.6 mg/dL (0.4-1.0); CRP HIGH SENSITIVITY 4.8 mg/L; GFR - MDRD 101 (>89); GLUCOSE 123 mg/dL (70-100); HDL CHOLESTEROL 50 mg/dL; LDL CHOLESTEROL,CALCULATED 123 mg/dL; LDL/HDL RATIO 2.5 (<4.4); POTASSIUM 3.9 mmol/L (3.5-5.0); SODIUM 136 mmol/L (135-145); TOTAL PROTEIN 7.3 g/dL (6.7-8.2); TRIGLYCERIDES 149 mg/dL; VLDL CHOLESTEROL 30 mg/dL
[2021-09-25 16:11] LABS: THYROID STIMULATING HORMONE 1.9 uIU/mL (0.34-5.60)
[2021-09-25 16:13] LABS: FREE T3 3.48 pg/mL (2.5-3.9); FREE T4 (FREE THYROXINE) 0.89 ng/dL (0.58-1.64)
[2021-09-25 16:18] LABS: FERRITIN 78.9 ng/mL (11.0-306.8)
[2021-09-25 19:39] LABS: ESTIMATED AVERAGE GLUCOSE 131 mg/dL (70-100); HEMOGLOBIN A1c% 6.2 % (4.27-6.07)
[2021-09-26 12:41] LABS: HOMOCYSTEINE 8.1 umol/L (<10.4)
== END 2021-09-25 07:50 | disposition home or self-care (01) ==
LOC: LAB.S 07:49
DX: E78.5 Hyperlipidemia, unspecified (principal); E03.9 Hypothyroidism, unspecified; R73.09 Other abnormal glucose; E55.9 Vitamin D deficiency, unspecified; I10 Essential (primary) hypertension; R53.83 Other fatigue; Z86.711 Personal history of pulmonary embolism; D68.61 Antiphospholipid syndrome; I82.409 Acute embolism and thrombosis of unspecified deep veins of unspecified lower extremity
CPT/HCPCS: 36415; 80053; 80061; 81599; 82306; 82626; 82728; 83036; 83090; 83721; 84439; 84443; 84480; 84481; 84482; 85025; 86141; 86146; 86147

== ENCOUNTER 2021-12-15 09:20 | Outpatient (CLI) | payer OTHER ==
[2021-12-15 12:45] LABS: BASOPHILS # (AUTO) 0.1 10^3/uL (0.0-0.1); BASOPHILS % (AUTO) 0.5 %; EOSINOPHILS # (AUTO) 0.2 10^3/uL (0.0-0.7); EOSINOPHILS % (AUTO) 1.8 %; HCT - HEMATOCRIT 42.2 % (37.0-47.0); HGB - HEMOGLOBIN 13.9 g/dL (12.0-16.0); LYMPHOCYTES # (AUTO) 2.5 10^3/uL (1.5-3.5); LYMPHOCYTES % (AUTO) 24.8 %; MEAN CORPUSCULAR HGB CONC 32.9 g/dL (32.0-36.0); MEAN CORPUSCULAR VOLUME 85.1 fL (81.0-99.0); MEAN PLATELET VOLUME 9.3 fL (7.9-10.8); MONOCYTES # (AUTO) 0.7 10^3/uL (0.0-1.0); MONOCYTES % (AUTO) 6.9 %; NEUTROPHILS # (AUTO) 6.6 10^3/uL (1.5-6.6); NEUTROPHILS % (AUTO) 65.7 %; PLT - PLATELET COUNT 359 10^3/uL (130-450); RED BLOOD COUNT 4.96 10^6/uL (4.20-5.40); RED CELL DISTRIBUTION WIDTH 13.3 % (12.0-15.0)
== END 2021-12-15 09:21 | disposition home or self-care (01) ==
LOC: LAB.S 09:20 → LAB 09:21
PROVIDERS: ATTEND Internal Medicine
DX: D68.59 Other primary thrombophilia (principal)
CPT/HCPCS: 36415; 80053; 81599; 85025; 86146; 86147

== ENCOUNTER 2021-12-16 11:38 | Outpatient (CLI) | payer OTHER ==
[2021-12-16 15:06] LABS: ALBUMIN 4.2 g/dL (3.2-5.5); ALBUMIN/GLOBULIN RATIO 1.2 (1.0-2.2); BILIRUBIN,TOTAL 0.5 mg/dL (0.2-1.0); CALCIUM 9.4 mg/dL (8.5-10.3); CREATININE 0.7 mg/dL (0.4-1.0); POTASSIUM 4.3 mmol/L (3.5-5.0); TOTAL PROTEIN 7.7 g/dL (6.7-8.2)
== END 2021-12-16 11:39 | disposition home or self-care (01) ==
LOC: LAB.S 11:38
DX: D68.59 Other primary thrombophilia (principal)
CPT/HCPCS: 36415; 80053

== ENCOUNTER 2022-02-18 15:54 | Emergency (ER) | payer OTHER ==
--- NOTE | 2022-02-18 16:18 | ED Physician Documentation ---
PD HPI CHEST PAIN - Stated complaint Stated Complaint: CP - Chief complaint Chief Complaint: Cardiac - History obtained from History obtained from: Patient - History of Present Illness Timing - onset: Today, Last night Timing - onset during: Rest, Light activity Timing - duration: Seconds Timing - details: Intermittant (has had brief sharp pains anterior chest feeling like "needles prickling in my chest" few seconds at a time, not provoked with movement, palpation, breathing, eating.) Pain level max: 6 Pain level now: 0 Quality: Sharp, Pain Location: Substernal, Right chest Improved by: No: Rest Worsened by: No: Exertion, Inspiration, Eating, Movement, Palpation Associated symptoms: Other (she noted her BP and heart rate were elevated at home.). No: Shortness of air, Nausea, Feeling faint / dizzy, Palpitations Similar symptoms before: Has not had sx before (prior PE but the symptoms were dyspnea and pleuritic pain. Not similar to this.) Recently seen: Not recently seen Review of Systems Constitutional: denies: Fever, Chills Nose: denies: Rhinorrhea / runny nose, Congestion Throat: denies: Sore throat Cardiac: denies: Palpitations, Pedal edema, Calf pain Respiratory: denies: Dyspnea, Cough, Wheezing GI: denies: Abdominal Pain, Nausea, Vomiting Skin: denies: Rash, Lesions Neurologic: denies: Generalized weakness PD PAST MEDICAL HISTORY - Past Medical History Cardiovascular: Hypertension, Pulmonary embolism (from unknown cause/provocation. Is on DOAC chronic. 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, P1) : None HEENT: None Psych: None Musculoskeletal: Osteoarthritis Derm: None - Past Surgical History General: Cholecystectomy - Present Medications Home Medications: Ambulatory Orders Medication Instructions Recorded Confirmed Apixaban [Eliquis] 5 mg PO BID #60 tablet 09/04/20 Losartan Potassium 50 mg PO DAILY 09/04/20 - Allergies Allergies/Adverse Reactions: Allergies Allergy/AdvReac Type Severity Reaction Status Date / Time Sulfa (Sulfonamide Allergy Unknown Verified 02/18/22 16:03 Antibiotics) - Social History Does the pt smoke?: No Smoking Status: Never smoker Does the pt drink ETOH?: Yes Does the pt have substance abuse?: No - Immunizations Immunizations are current?: Yes - POLST Patient has POLST: No POLST Status: Full Code PD ED PE NORMAL - Vitals Vital signs reviewed: Yes - General General: Alert and oriented X 3, No acute distress, Well developed/nourished - HEENT HEENT: Pharynx benign - Neck Neck: Supple, no meningeal sign, No adenopathy - Cardiac Cardiac: RRR, No murmur - Respiratory Respiratory: Clear bilaterally, Other (no chestwall tenderness. ) - Abdomen Abdomen: Soft, Non tender, Other (BMI 42) - Derm Derm: Normal color, Warm and dry, No rash - Extremities Extremities: No edema, No calf tenderness / cord - Neuro Neuro: Alert and oriented X 3, No motor deficit, Normal speech Results - Vitals Vitals: Vital Signs - 24 hr 02/18/22 02/18/22 02/18/22 15:57 16:02 16:32 Temperature 36.4 C L 36.5 C Heart Rate 107 H 107 H 104 H Respiratory 14 14 21 Rate Blood Pressure 184/105 H 184/105 H 155/89 H O2 Saturation 97 97 97 02/18/22 17:04 Temperature Heart Rate 85 Respiratory 10 L Rate Blood Pressure 122/80 O2 Saturation 98 Oxygen O2 Source Room air - EKG (time done) 16:03 Rate: Rate (enter#) (101) Rhythm: Sinus tachycardia, NSR [place]: Normal Intervals: Normal DE QRS: Normal Ischemia: Normal ST segments. No: ST elevation c/w ischemia, ST depression - Labs Labs: Laboratory Tests 02/18/22 02/18/22 02/18/22 16:28 16:28 16:28 WBC 9.9 RBC 5.14 Hgb 14.2 Hct 43.2 MCV 84.0 MCH 27.6 MCHC 32.9 RDW 13.2 Plt Count 334 MPV 9.0 Neut # (Auto) 6.9 H Lymph # (Auto) 2.0 [place] # (Auto) 0.7 Eos # (Auto) 0.2 Baso # (Auto) 0.0 Absolute Nucleated RBC 0.00 Nucleated RBC % 0.0 D-Dimer Sodium 134 L Potassium 3.8 Chloride 102 Carbon Dioxide 23 Anion Gap 9.0 BUN 15 Creatinine 0.7 Estimated GFR (MDRD) 84 L Glucose 123 H Calcium 9.3 Total Bilirubin 0.3 AST 21 ALT 29 Alkaline Phosphatase 80 Troponin I High Sens 5.4 B-Natriuretic Peptide Total Protein 7.9 Albumin 4.3 Globulin 3.6 Albumin/Globulin Ratio 1.2 Lipase 33 02/18/22 02/18/22 16:30 16:30 WBC RBC Hgb Hct MCV MCH MCHC RDW Plt Count MPV Neut # (Auto) Lymph # (Auto) [place] # (Auto) Eos # (Auto) Baso # (Auto) Absolute Nucleated RBC Nucleated RBC % D-Dimer < 200.0 L Sodium Potassium Chloride Carbon Dioxide Anion Gap BUN Creatinine Estimated GFR (MDRD) Glucose Calcium Total Bilirubin AST ALT Alkaline Phosphatase Troponin I High Sens B-Natriuretic Peptide 41 Total Protein Albumin Globulin Albumin/Globulin Ratio Lipase - Rads (name of study) chest xray Radiology: Prelim report reviewed (no acute process), See rad report PD MEDICAL DECISION MAKING - ED course Complexity details: reviewed results, considered differential (not clear the cause of the fleeting pinprick type pains. Can get labs/CXR/ECG to ensure no obvious serious cause. ), d/w patient Departure - Departure Disposition: 01 Home, Self Care Clinical Impression: Chest pain Qualifiers: Chest pain type: precordial pain Qualified Code(s): R07.2 - Precordial pain Condition: Stable Record reviewed to determine appropriate education?: Yes Instructions: ED Chest Pain Atypical Unkn Cause Follow-Up: Leigh Perdue MD [Primary Care Provider] - Comments: It is unclear the cause of your chest symptoms. However the EKG, vital signs, chest x-ray and blood tests are normal without any evidence for heart attack, blood clots, heart failure, pneumonia, collapsed lung, or fluid around the lung. I feel safe and saying its okay to just take some Tylenol if needed for chest discomfort and see how it goes over the next few days. Recheck her return to the ER if persisting longer term or you develop other associated symptoms such as shortness of breath, fever, lightheadedness, pain with eating or other concerns. Discharge Date/Time: 02/18/22 18:17
[2022-02-18 16:32] LABS: BASOPHILS % (AUTO) 0.4 %; EOSINOPHILS # (AUTO) 0.2 10^3/uL (0.0-0.7); EOSINOPHILS % (AUTO) 1.6 %; HCT - HEMATOCRIT 43.2 % (37.0-47.0); HGB - HEMOGLOBIN 14.2 g/dL (12.0-16.0); MEAN CORPUSCULAR HEMOGLOBIN 27.6 pg (27.0-31.0); MEAN CORPUSCULAR HGB CONC 32.9 g/dL (32.0-36.0); MONOCYTES # (AUTO) 0.7 10^3/uL (0.0-1.0); MONOCYTES % (AUTO) 7.4 %; NEUTROPHILS # (AUTO) 6.9 10^3/uL (1.5-6.6); NEUTROPHILS % (AUTO) 70.3 %; PLT - PLATELET COUNT 334 10^3/uL (130-450); RED BLOOD COUNT 5.14 10^6/uL (4.20-5.40); RED CELL DISTRIBUTION WIDTH 13.2 % (12.0-15.0); WHITE BLOOD COUNT 9.9 x10^3/uL (4.8-10.8)
[2022-02-18] MEDS ORDERED: MAG HYDROX/AL HYDROX/SIMETH 30 ML UDC PO STA (16:35)
--- NOTE | 2022-02-18 16:45 | XRAY Report ---
PROCEDURE: Chest 1 View X-Ray INDICATIONS: Chest Pain TECHNIQUE: One view of the chest was acquired. COMPARISON: 09/03/2020 FINDINGS: Surgical changes and devices: None. Lungs and pleura: No pleural effusions or pneumothorax. Lungs are clear. Mediastinum: Mediastinal contours appear normal. Heart size is normal. Bones and chest wall: No suspicious bony lesions. Overlying soft tissues appear unremarkable. IMPRESSION: No acute cardiopulmonary pathology. Reviewed by: Norm Thakur MD on 02/18/2022 4:44 PM PDT Approved by: Norm Thakur MD on 02/18/2022 4:44 PM PDT Station ID: [id number]
[2022-02-18 16:46] LABS: ALBUMIN 4.3 g/dL (3.2-5.5); ALBUMIN/GLOBULIN RATIO 1.2 (1.0-2.2); BILIRUBIN,TOTAL 0.3 mg/dL (0.2-1.0); CALCIUM 9.3 mg/dL (8.5-10.3); CREATININE 0.7 mg/dL (0.4-1.0); POTASSIUM 3.8 mmol/L (3.5-5.0); TOTAL PROTEIN 7.9 g/dL (6.7-8.2)
[2022-02-18 17:05] VITALS: BP 122/80
[2022-02-20 09:31] LABS: HEPATITIS A IGM NON-REACTIVE (NON-REACTIVE); HEPATITIS B CORE ANTIBODY IGM NON-REACTIVE (NON-REACTIVE); HEPATITIS B SURFACE ANTIGEN NON-REACTIVE (NON-REACTIVE); HEPATITIS C ANTIBODY NON-REACTIVE (NON-REACTIVE)
[2022-02-22 14:42] LABS: HIV AG/AB 4TH GEN NON-REACTIVE (NON-REACTIVE)
== END 2022-02-18 18:17 | disposition home or self-care (01) ==
LOC: ED 15:54
DX: R07.2 Precordial pain (principal)
CPT/HCPCS: 36415; 71045; 80053; 80074; 83690; 83880; 84484; 85025; 85379; 87389; 93005; 99284; A9270

== ENCOUNTER 2022-03-15 07:14 | Outpatient (CLI) | payer OTHER ==
[2022-03-15 14:37] LABS: BASOPHILS % (AUTO) 0.4 %; EOSINOPHILS # (AUTO) 0.2 10^3/uL (0.0-0.7); EOSINOPHILS % (AUTO) 2.2 %; HCT - HEMATOCRIT 40.9 % (37.0-47.0); HGB - HEMOGLOBIN 12.8 g/dL (12.0-16.0); LYMPHOCYTES # (AUTO) 1.9 10^3/uL (1.5-3.5); LYMPHOCYTES % (AUTO) 25.8 %; MEAN CORPUSCULAR HEMOGLOBIN 27.1 pg (27.0-31.0); MEAN CORPUSCULAR HGB CONC 31.3 g/dL (32.0-36.0); MEAN CORPUSCULAR VOLUME 86.5 fL (81.0-99.0); MONOCYTES # (AUTO) 0.6 10^3/uL (0.0-1.0); MONOCYTES % (AUTO) 7.9 %; NEUTROPHILS # (AUTO) 4.6 10^3/uL (1.5-6.6); NEUTROPHILS % (AUTO) 63.6 %; PLT - PLATELET COUNT 353 10^3/uL (130-450); RED BLOOD COUNT 4.73 10^6/uL (4.20-5.40); RED CELL DISTRIBUTION WIDTH 13.5 % (12.0-15.0); WHITE BLOOD COUNT 7.3 x10^3/uL (4.8-10.8)
[2022-03-15 14:51] LABS: ALBUMIN 4.1 g/dL (3.2-5.5); ALBUMIN/GLOBULIN RATIO 1.2 (1.0-2.2); ALKALINE PHOSPHATASE 83 IU/L (42-121); ALT ALANINE AMINOTRANSFERASE 28 IU/L (10-60); AST ASPARTATE AMINOTRANSFERASE 21 IU/L (10-42); BILIRUBIN,TOTAL 0.6 mg/dL (0.2-1.0); BUN - BLOOD UREA NITROGEN 14 mg/dL (6-20); CALCIUM 9.2 mg/dL (8.5-10.3); CARBON DIOXIDE - CO2 23 mmol/L (21-32); CHLORIDE 102 mmol/L (101-111); CHOL/HDL RATIO 3.8 (<4.4); CHOLESTEROL 196 mg/dL; CREATININE 0.5 mg/dL (0.4-1.0); CRP HIGH SENSITIVITY 7.7 mg/L; GFR - MDRD 124 (>89); GLUCOSE 123 mg/dL (70-100); HDL CHOLESTEROL 52 mg/dL; LDL CHOLESTEROL,CALCULATED 121 mg/dL; LDL/HDL RATIO 2.3 (<4.4); POTASSIUM 4.6 mmol/L (3.5-5.0); SODIUM 136 mmol/L (135-145); TOTAL PROTEIN 7.4 g/dL (6.7-8.2); TRIGLYCERIDES 117 mg/dL; VLDL CHOLESTEROL 23 mg/dL
[2022-03-15 15:07] LABS: THYROID STIMULATING HORMONE 1.79 uIU/mL (0.34-5.60)
[2022-03-15 15:08] LABS: FREE T3 3.32 pg/mL (2.5-3.9)
[2022-03-15 15:09] LABS: FREE T4 (FREE THYROXINE) 0.82 ng/dL (0.58-1.64)
[2022-03-15 21:06] LABS: ESTIMATED AVERAGE GLUCOSE 134 mg/dL (70-100); HEMOGLOBIN A1c% 6.3 % (4.27-6.07)
[2022-03-16 12:01] LABS: HOMOCYSTEINE 9.5 umol/L (<10.4)
== END 2022-03-15 07:15 | disposition home or self-care (01) ==
LOC: LAB.S 07:14
PROVIDERS: ATTEND Family Medicine
DX: R73.09 Other abnormal glucose (principal); E78.5 Hyperlipidemia, unspecified; R53.83 Other fatigue; E03.9 Hypothyroidism, unspecified; E55.9 Vitamin D deficiency, unspecified; I10 Essential (primary) hypertension
CPT/HCPCS: 36415; 80053; 80061; 82306; 82626; 83036; 83090; 83721; 84439; 84443; 84480; 84481; 85025; 86141

== ENCOUNTER 2022-04-19 10:24 | Outpatient (CLI) | payer OTHER ==
[2022-04-19 15:29] LABS: ALBUMIN 4.1 g/dL (3.2-5.5); ALBUMIN/GLOBULIN RATIO 1.2 (1.0-2.2); BILIRUBIN,TOTAL 0.5 mg/dL (0.2-1.0); CALCIUM 9.6 mg/dL (8.5-10.3); CREATININE 0.6 mg/dL (0.4-1.0); POTASSIUM 4.2 mmol/L (3.5-5.0); TOTAL PROTEIN 7.4 g/dL (6.7-8.2)
== END 2022-04-19 10:25 | disposition home or self-care (01) ==
LOC: LAB.S 10:24
PROVIDERS: ATTEND Family Medicine
DX: I10 Essential (primary) hypertension (principal); R73.09 Other abnormal glucose
CPT/HCPCS: 36415; 80053

== ENCOUNTER 2022-06-18 07:04 | Outpatient (CLI) | payer OTHER ==
[2022-06-18 14:46] LABS: BASOPHILS % (AUTO) 0.4 %; EOSINOPHILS # (AUTO) 0.2 10^3/uL (0.0-0.7); HCT - HEMATOCRIT 39.9 % (37.0-47.0); HGB - HEMOGLOBIN 12.6 g/dL (12.0-16.0); LYMPHOCYTES % (AUTO) 26.4 %; MEAN CORPUSCULAR HEMOGLOBIN 27.1 pg (27.0-31.0); MEAN CORPUSCULAR HGB CONC 31.6 g/dL (32.0-36.0); MEAN CORPUSCULAR VOLUME 85.8 fL (81.0-99.0); MEAN PLATELET VOLUME 9.8 fL (7.9-10.8); MONOCYTES # (AUTO) 0.5 10^3/uL (0.0-1.0); MONOCYTES % (AUTO) 6.2 %; NEUTROPHILS # (AUTO) 4.8 10^3/uL (1.5-6.6); NEUTROPHILS % (AUTO) 64.7 %; PLT - PLATELET COUNT 349 10^3/uL (130-450); RED BLOOD COUNT 4.65 10^6/uL (4.20-5.40); RED CELL DISTRIBUTION WIDTH 13.7 % (12.0-15.0); WHITE BLOOD COUNT 7.5 x10^3/uL (4.8-10.8)
[2022-06-18 21:29] LABS: ESTIMATED AVERAGE GLUCOSE 131 mg/dL (70-100); HEMOGLOBIN A1c% 6.2 % (4.27-6.07)
== END 2022-06-18 07:05 | disposition home or self-care (01) ==
LOC: LAB.S 07:04
PROVIDERS: ATTEND Family Medicine
DX: I10 Essential (primary) hypertension (principal); R73.09 Other abnormal glucose; R53.83 Other fatigue; E78.5 Hyperlipidemia, unspecified; E55.9 Vitamin D deficiency, unspecified
CPT/HCPCS: 36415; 81003; 82306; 82728; 83036; 83090; 85025; 86141

== ENCOUNTER 2023-03-25 14:10 | Outpatient (CLI) | payer OTHER ==
--- NOTE | 2023-03-25 15:19 | DEXA Report ---
PROCEDURE: Dexa Spine and/or Hip INDICATIONS: MENOPAUSAL TECHNIQUE: Dual energy x-ray absorptiometry (DXA) was performed on a [email or web address] System. Regions measur ed are the AP Spine, femoral neck, and if needed forearm. COMPARISON: None. FINDINGS: Lumbar Spine: Bone Mineral Density 1.1-6 g/cm/cm,T score -0.4. Left Femoral Neck: Bone Mineral Density 0.906 g/cm/cm, T score -0.9. Left Hip: Bone Mineral Density 0.967 g/cm/cm,T score -0.3. (T score greater or equal to -1.0: NORMAL) (T score from -1.1 to -2.4: OSTEOPENIA) (T score less than or equal to -2.5 to: OSTEOPOROSIS) Impression: Based on WHO criteria, the patient has normal bone mineral density. Patients with diagnosis of osteoporosis or osteopenia should have regular bone mineral density assess ment. For those eligible for Medicare, routine testing is allowed once every 2 years. Testing frequ ency can be increased for patients who have rapidly progressing disease or for those who are receivin g medical therapy to restore bone mass. Reviewed by: Anupam Leon MD on 03/25/2023 3:18 PM PDT Approved by: Anupam Leon MD on 03/25/2023 3:18 PM PDT Station ID: [id number]
== END 2023-03-25 14:11 | disposition home or self-care (01) ==
LOC: DI 14:10
PROVIDERS: ATTEND Family Medicine
DX: N95.1 Menopausal and female climacteric states (principal)

== ENCOUNTER 2023-03-25 14:10 | Outpatient (CLI) | payer OTHER ==
--- NOTE | 2023-03-28 09:16 | Mammography Report ---
BILATERAL DIGITAL SCREENING MAMMOGRAM 3D/2D: 03/25/2023 CLINICAL: Routine screening. Comparison is made to exams dated: 05/05/2016 mammogram, 12/19/2013 mammogram, and 07/12/2012 mammogram - [facility]. Both breasts are almost entirely fatty (category a/<25% glandular tissue). No significant masses, calcifications, or other findings are seen in either breast. There has been no significant interval change. IMPRESSION: NEGATIVE There is no mammographic evidence of malignancy. A 1 year screening mammogram is recommended. Based on the Tyrer Cuzick model (a risk assessment model) the patients lifetime risk is 3.7% and her 10 year risk is 1.9%. According to the ACR, ACS, and NCCN guidelines, an annual breast MRI exam romana g with mammogram is recommended if the patients lifetime risk is 20% or greater. This exam was interpreted at Station ID: [id number]. NOTE: For mammograms, a report in lay terms will be sent to the patient. Approximately 15% of breast malignancies will not be visualized mammographically. In the management of a palpable breast mass, a negative mammogram must not discourage biopsy of a clinically suspicious lesion. Electronically Signed By: Domingo [email or web address]/[email or web address]:03/28/2023 07:04:32 letter sent: No_Letter ACR BI-RADS Category 1: Negative 3341F PARENCHYMAL PATTERN: (F) - The breast(s) demonstrate(s) diffuse fatty replacement. BI-RADS CATEGORY: (1) - 1 Mammogram [id number] 1 year screening LATERALITY: (B)
== END 2023-03-25 14:11 | disposition home or self-care (01) ==
LOC: DI 14:10
DX: Z12.31 Encounter for screening mammogram for malignant neoplasm of breast (principal)

== ENCOUNTER 2023-08-05 07:30 | Outpatient (CLI) | payer OTHER ==
[2023-08-05 15:05] LABS: BASOPHILS % (AUTO) 0.5 %; EOSINOPHILS # (AUTO) 0.2 10^3/uL (0.0-0.7); EOSINOPHILS % (AUTO) 2.5 %; HCT - HEMATOCRIT 41.2 % (37.0-47.0); HGB - HEMOGLOBIN 13.1 g/dL (12.0-16.0); LYMPHOCYTES # (AUTO) 2.7 10^3/uL (1.5-3.5); LYMPHOCYTES % (AUTO) 30.8 %; MEAN CORPUSCULAR HEMOGLOBIN 27.4 pg (27.0-31.0); MEAN CORPUSCULAR HGB CONC 31.8 g/dL (32.0-36.0); MEAN CORPUSCULAR VOLUME 86.2 fL (81.0-99.0); MEAN PLATELET VOLUME 9.3 fL (7.9-10.8); MONOCYTES # (AUTO) 0.5 10^3/uL (0.0-1.0); MONOCYTES % (AUTO) 6.1 %; NEUTROPHILS # (AUTO) 5.2 10^3/uL (1.5-6.6); PLT - PLATELET COUNT 361 10^3/uL (130-450); RED BLOOD COUNT 4.78 10^6/uL (4.20-5.40); RED CELL DISTRIBUTION WIDTH 13.7 % (12.0-15.0); WHITE BLOOD COUNT 8.6 x10^3/uL (4.8-10.8)
[2023-08-05 15:19] LABS: ALBUMIN 4.3 g/dL (3.2-5.5); ALBUMIN/GLOBULIN RATIO 1.6 (1.0-2.2); BILIRUBIN,TOTAL 0.4 mg/dL (0.2-1.0); CALCIUM 9.4 mg/dL (8.5-10.3); CREATININE 0.6 mg/dL (0.6-1.3); CRP HIGH SENSITIVITY 6.55 mg/L; POTASSIUM 4.3 mmol/L (3.5-4.5)
[2023-08-05 21:18] LABS: ESTIMATED AVERAGE GLUCOSE 126 mg/dL (70-100)
== END 2023-08-05 07:31 | disposition home or self-care (01) ==
LOC: LAB.S 07:30
PROVIDERS: ATTEND Family Medicine
DX: E78.5 Hyperlipidemia, unspecified (principal); R73.09 Other abnormal glucose; R53.83 Other fatigue
CPT/HCPCS: 36415; 80053; 83036; 83090; 85025; 86141

== ENCOUNTER 2023-12-15 10:44 | Outpatient (CLI) | payer OTHER ==
--- NOTE | 2023-12-15 14:03 | XRAY Report ---
PROCEDURE: Hips w/Pelvis 2-3V BL INDICATIONS: HIP PAIN TECHNIQUE: 3 view(s) of the hip were acquired. COMPARISON: None FINDINGS: Bones: No fractures or dislocations. [id number] bilateral hip joint space narrowing and artic ular osteophytosis. Mild degenerative changes of the lower lumbar spine. No suspicious bony lesions. The visualized pelvic ring appears intact. Soft tissues: No suspicious soft tissue calcifications or masses. IMPRESSION: 1.No acute bony abnormality. If there is high clinical suspicion for a radiographically occult fractu re, consider cross-sectional imaging for further evaluation. 2.Mild to moderate bilateral hip joint osteoarthritis. Reviewed by: Analy Farrell MD on 12/15/2023 2:02 PM PST Approved by: Analy Farrell MD on 12/15/2023 2:02 PM PST Station ID: [id number]
== END 2023-12-15 10:45 | disposition home or self-care (01) ==
LOC: DI.S 10:44
PROVIDERS: ATTEND Family Medicine
DX: M16.0 Bilateral primary osteoarthritis of hip (principal)

== ENCOUNTER 2024-03-02 09:24 | Outpatient (CLI) | payer OTHER ==
--- NOTE | 2024-03-02 09:41 | XRAY Report ---
PROCEDURE: Chest 2V INDICATIONS: COUGH,SOB TECHNIQUE: 2 views of the chest were acquired. COMPARISON: 02/18/2022. FINDINGS: Surgical changes and devices: None. Lungs and pleura: No pleural effusions or pneumothorax. Lungs are clear. Mediastinum: Mediastinal contours appear normal. Heart size is normal. Bones and chest wall: No suspicious bony lesions. Overlying soft tissues appear unremarkable. IMPRESSION: No acute cardiopulmonary process. Reviewed by: Vinod Reaves MD on 03/02/2024 9:40 AM PDT Approved by: Vinod Reaves MD on 03/02/2024 9:40 AM PDT Station ID: [id number]
== END 2024-03-02 09:25 | disposition home or self-care (01) ==
LOC: DI.S 09:24
PROVIDERS: ATTEND Family Medicine
DX: R05.9 Cough, unspecified (principal); R06.02 Shortness of breath